=== PATIENT | female | born 1995 | race Caucasian/White ===

== ENCOUNTER → 2018-04-05 16:31 | Outpatient (CLI) | payer OTHER, SELFPAY ==
[2018-04-11 11:48] LABS: HPV Reflexed? NOT INDICATED
== END ==
PROVIDERS: Visit Provider Obstetrics & Gynecology
DX: Z12.4 Encounter for screening for malignant neoplasm of cervix (principal)
CPT/HCPCS: 88175; G0145

== ENCOUNTER → 2019-06-18 17:56 | Outpatient (CLI) | payer BC, SELFPAY ==
[2019-06-18 21:59] LABS: Chlamydia Trachomatis by PCR Negative (Negative); Neisserai gonorrhoeae by PCR Negative (Negative); Probe Check PASS; Sample Adequacy Control PASS; Specimen Processing Control PASS
== END ==
PROVIDERS: Referring Provider Obstetrics & Gynecology; Visit Provider Obstetrics & Gynecology
DX: Z11.3 Encounter for screening for infections with a predominantly sexual mode of transmission (principal)
CPT/HCPCS: 87491; 87591

== ENCOUNTER → 2019-06-28 16:46 | Outpatient (CLI) | payer BC, SELFPAY ==
[2019-06-28 17:33] LABS: Absolute Lymphocyte Count 1.66 X10^3/uL (0.83-4.51); Absolute Neutrophil Count 4.7 X10^3/uL (2.0-7.7); Basophil# 0.03 X10^3/uL; Basophil% 0.4 % (0-1); Eosinophil# 0.05 X10^3/uL; Eosinophils% 0.7 % (0-5); Hematocrit 36.1 % (37-47); Hemoglobin 11.7 g/dL (12.0-15.0); Lymphocyte # 1.66 X10^3/ul (4.0); Lymphocyte % 23.5 % (19-41); Mean Corp Hgb Conc 32.4 g/dL (32-36); Mean Corpuscular Hgb 26.8 pg (27.0-32.0); Mean Corpuscular Volume 82.6 fL (81-99); Mean Platelet Vol. 9.9 fl (6.2-12.0); Monocyte# 0.64 X10^3/uL; Monocyte% 9.1 % (0-10); NRBC Flagged by Analyzer 0 % (0-5); Neutrophil # 4.66 X10^3/uL (2.7-7.7); Platelet Count 170 K/mm3 (150-450); RBC Distribution Width CV 12.3 % (11.6-14.6); RBC Distribution Width SD 37.2 fl (35.1-43.9); Red Blood Count 4.37 M/mm3 (4.2-5.4); White Blood Count 7.1 K/mm3 (4.4-11.0)
[2019-06-28 19:07] LABS: Thyroid Stim Hormone (TSH) 0.73 uIU/mL (0.358-3.74)
[2019-06-29 09:01] LABS: HIV - WCH Non-Reactive (Nonreactive); Hepatitis B Surface Antigen Non-Reactive (Nonreactive); Hepatitis C Antibody Non-Reactive (Nonreactive); Rubella IgG 82.9 IU/mL
[2019-06-29 09:07] LABS: Glucose, Dipstick Normal (Normal); Ketone-Dipstick Negative (Negative); Leukocyte Esterase-Dipstick Negative /ul (Negative); Nitrite-Dipstick Negative (Negative); Occult Blood-Urine Negative /ul (Negative); Protein-Dipstick Negative (Negative); Specific Gravity, Urine 1.015 (1.002-1.030); Urine Bilirubin Dipstick Negative (Negative); Urine Urobilinogen Normal (Normal)
[2019-06-29 09:17] LABS: Amphetamine Urine VISTA NEGATIVE (<1000 ng/mL); Barbiturate Urine VISTA NEGATIVE (< 200 ng/mL); Benzodiazepine Urine VISTA NEGATIVE (< 200 ng/mL); Cocaine Urine VISTA NEGATIVE (< 300 ng/mL); Ecstacy Urine VISTA NEGATIVE (< 500 ng/mL); Methadone Urine VISTA NEGATIVE (< 300 ng/mL); PCP Urine VISTA NEGATIVE (< 25 ng/mL); THC Urine VISTA NEGATIVE (< 50 ng/mL); Vista UDS pH Range 6
[2019-06-29 09:19] LABS: Color, Urine Yellow (Yellow); Urine Clarity Clear (Clear)
[2019-07-05 01:51] LABS: Prenatal RPR NONREACTIVE (NONREACTIVE)
== END ==
PROVIDERS: Visit Provider Obstetrics & Gynecology
DX: Z34.81 Encounter for supervision of other normal pregnancy, first trimester (principal)
CPT/HCPCS: 80307; 81002; 84443; 85025; 86703; 86762; 86803; 87340

== ENCOUNTER → 2019-11-09 | Outpatient (CLI) | payer BC, SELFPAY ==
[2019-11-09 11:18] LABS: Mean Corp Hgb Conc 32.4 g/dL (32-36); Mean Corpuscular Hgb 28.8 pg (27.0-32.0); Mean Platelet Vol. 10.4 fl (6.2-12.0); Platelet Count 142 K/mm3 (150-450); RBC Distribution Width CV 12.9 % (11.6-14.6); RBC Distribution Width SD 41.6 fl (35.1-43.9); Red Blood Count 3.82 M/mm3 (4.2-5.4); White Blood Count 8.3 K/mm3 (4.4-11.0)
[2019-11-09 11:23] LABS: Glucose Challenge Gest 1H 50g 72 mg/dL (70-140)
[2019-11-12 17:07] LABS: BUN 9 mg/dL (7-18); BUN/Creat Ratio 20.5 RATIO (10-20); Creatinine, Serum 0.44 mg/dL (0.55-1.02); EST Glomerular Filtration Rate 184 mL/min (>60); Est Glom Filt Rate - Afr Amer 223 mL/min (>60); Uric Acid 3.7 mg/dL (2.6-6.0)
[2019-11-12 17:08] LABS: AST(SGOT) 10 U/L (15-37); Alanine Aminotransfer ALT/SGPT 27 U/L (13-56); Alkaline Phosphatase 49 U/L (45-117); Chloride 111 mmol/L (98-107); Potassium 4.1 mmol/L (3.5-5.1); Sodium Level 142 mmol/L (136-145)
== END | disposition home or self-care (01) ==
LOC: WOBLAB 10:19
PROVIDERS: Visit Provider Obstetrics & Gynecology
DX: Z34.83 Encounter for supervision of other normal pregnancy, third trimester (principal)
CPT/HCPCS: 36415; 80053; 82950; 84550; 85027

== ENCOUNTER → 2020-01-03 | Outpatient (CLI) | payer BC, SELFPAY | END | disposition home or self-care (01) | LOC: LABSPEC 16:23 | PROVIDERS: Visit Provider Obstetrics & Gynecology | DX: Z36.85 Encounter for antenatal screening for Streptococcus B (principal) | CPT/HCPCS: 87081 ==

== ENCOUNTER → 2020-01-22 17:58 | Outpatient (CLI) | payer BC, SELFPAY | PROVIDERS: PCP Family Medicine; Referring Provider Obstetrics & Gynecology; Visit Provider Obstetrics & Gynecology | DX: Z11.59 Encounter for screening for other viral diseases (principal) | CPT/HCPCS: 87635; 94799; U0003 ==

== ENCOUNTER 2020-01-27 19:05 | Inpatient (IN) | payer BC, SELFPAY ==
[2020-01-27 19:15] VITALS: BMI 31.1
[2020-01-27] MEDS: Lactated Ringers 1,000 ML 50 ML IV (19:40)
--- NOTE | 2020-01-27 20:00 | HP.PCM_ITS ---
- Problem List (1) 40 weeks gestation of Status: Acute (2) Gestational thrombocytopenia Status: Acute Qualifiers: Trimester: third trimester Qualified Code(s): O99.113 - Other diseases of the blood and blood-forming organs and certain disorders involving the immune mechanism complicating , third trimester; D69.6 - Thrombocytopenia, unspecified History Date of Admission: 01/27/20 Final WILBERT: 01/27/20 Final WILBERT Source: US <20 weeks Gestational age: 40 Weeks and 0 Days History of this : This is a 24 year-old, G [2], P [0], at 40.0 weeks gestational age. Alcohol: None Number of Fetus(es): 1 NST - FHR Rate Baby A Baseline: 130 Variability:: Moderate Accelerations:: 15 x 15 Decelerations:: None NST Reactive:: Yes FHR Category:: Category I Uterine Activity:: quiet History Past Pregnancies: Past Pregnancies: PRIOR DELIVERY HISTORY DEL DATE GEST LAB WT LB WT OZ TYPE ANES LABOR [place] Dec 27 5 0 0 0 Ectop None No Expected Delivery Method: Spontaneous Vaginal Number of Visits: 14 Review of Systems Constitutional: Denies: Chills, Fever, Weight Change HEENT: Denies: Head Aches, Sinus Congestion, Sinus Drainage Cardiovascular: Denies: Chest Pain, Palpitations Respiratory: Denies: Cough, Shortness of breath at rest, Sputum production Gastrointestinal: Denies: Abdominal Pain, Nausea, Vomiting Genitourinary: Denies: Dysuria Musculoskeletal: Denies: Joint Pain, Joint Tenderness Skin: Denies: Rash, Wounds Neurological: Denies: Numbness, Tingling, Focal weakness Psychiatric: Denies: Anxiety, Depression, Homicidal Ideations, Suicidal Ideations Hematologic/ Lymphatic: Denies: Easy Bruising, Easy Bleeding Physical Exam General: Alert, Oriented x3, No apparent distress HEENT: Atraumatic, Normocephalic. Negative for: Thyromegaly, Lymphadenopathy Cardiovascular: Regular rate, Regular Rhythm Lungs: Clear to auscultation Abdomen: Bowel Sounds Present, Gravid Neurological: Deep Tendon Reflexes 2+/4 and Symmetrical, Neuro grossly intact [employer]: Normal external genitalia. Negative for: Vulvar lesions Estimated gestational size: Appropriate for gestational size Presentation: Cephalic Cervix Dilation (cm): 1 Station: -3 Effacement (%): 25 Assessment/Plan All Active Problems (This Medical Record has been edited. Action required.) 40 weeks gestation of (Acute) Gestational thrombocytopenia (Acute) A/P: This is a 24 year-old, G [2], P [0], at 40.0 weeks gestational age. Cytotec IOL for gestational thrombocytopenia at term SVE 07/07/-3 NST Category I Regular diet until active labor or Pitocin Expect
[2020-01-27 20:11] LABS: Absolute Lymphocyte Count 1.55 X10^3/uL (0.83-4.51); Absolute Neutrophil Count 7.8 X10^3/uL (2.0-7.7); Basophil# 0.02 X10^3/uL; Basophil% 0.2 % (0-1); Eosinophil# 0.06 X10^3/uL; Eosinophils% 0.6 % (0-5); Hematocrit 36.4 % (37-47); Lymphocyte # 1.55 X10^3/ul (4.0); Mean Corpuscular Hgb 28.4 pg (27.0-32.0); Mean Corpuscular Volume 86.1 fL (81-99); Mean Platelet Vol. 10.9 fl (6.2-12.0); Monocyte# 0.86 X10^3/uL; Monocyte% 8.3 % (0-10); NRBC Flagged by Analyzer 0 % (0-5); Neutrophil # 7.79 X10^3/uL (2.7-7.7); Neutrophil % 75.3 % (47-70); Platelet Count 127 K/mm3 (150-450); RBC Distribution Width CV 13.3 % (11.6-14.6); RBC Distribution Width SD 41.4 fl (35.1-43.9); Red Blood Count 4.23 M/mm3 (4.2-5.4); White Blood Count 10.3 K/mm3 (4.4-11.0)
[2020-01-27] MEDS: miSOPROStol 25 MCG TABLET VAGINAL (20:14)
[2020-01-27 20:18] VITALS: BP 130/78; PULSE 85; TEMP 36.3
[2020-01-28] VITALS (49 sets, daily range): BP systolic 97–153; BP diastolic 55–88; PULSE 72–111; TEMP 35.8–37.2; O2SAT 91–100
[2020-01-28] MEDS: Lactated Ringers 500 ML 999 ML IV ×2 (01:21→11:40)
--- NOTE | 2020-01-28 06:28 | PCM.PN.OB ---
Patient Problems: Active and Suspected Problems (This Medical Record has been edited. Action required.) 40 weeks gestation of (Acute) Gestational thrombocytopenia (Acute) Subjective: A little crampy with contractions, but not too painful. Okay with starting Pitocin. Objective: VSS. SVE 1.5/60/-2. FHR baseline 120, +accels, -decels, moderate variability. - Physical Exam Vitals/I&O's: Vital Signs Temp Pulse BP Pulse Ox 97.2 F L 78 112/70 100 01/28/20 03:54 01/28/20 05:47 01/28/20 03:54 01/28/20 05:47 Weight: 84.731 kg Body Mass Index (BMI) 31.1 Intake and Output for Last 24 Hours 01/26/20 01/27/20 01/28/20 23:59 23:59 23:59 Intake Total 784.17 / 784.17 Balance 784.17 / 784.17 General: Alert, Oriented x3, Cooperative HEENT: Atraumatic, PERRLA, EOMI, Normocephalic Neck: Supple, No JVD, Negative Carotid Bruits Lungs: Clear to auscultation, Normal air movement Cardiovascular: Regular rate, No murmurs Abdomen: Bowel Sounds Present, Soft, Non Tender Extremities: No edema, Capillary Refill Less than 3 Seconds Skin: No rashes, No breakdown Musculoskeletal: No Tenderness to Palpation of Joints or Extremities Neurological: Cranial nerves II-XII grossly intact Psych/Mental Status: Normal Affect, Appropriate Laboratory Results 01/27/20 19:40: WBC 10.3, RBC 4.23, Hgb 12.0, Hct 36.4 L, MCV 86.1, MCH 28.4, MCHC 33.0, RDW Std Deviation 41.4, RDW Coeff of Guido 13.3, Plt Count 127 L, MPV 10.9, Immature Gran % (Auto) 0.600, Neut % (Auto) 75.3 H, Lymph % (Auto) 15.0 L, [place] % (Auto) 8.3, Eos % (Auto) 0.6, Baso % (Auto) 0.2, Absolute Neuts (auto) 7.8 H, Absolute Lymphs (auto) 1.55, Nucleated RBC % 0 01/27/20 19:40: Blood Type A POSITIVE, Antibody Screen NEGATIVE Current Medications Acetaminophen (Tylenol) 325 - 650 mg PO Q4H PRN PRN PRN Reason: Pain Score 1-3/10 Al Hydroxide/Mg Hydroxide (Mylanta Ii) 15 - 30 ml PO Q4H PRN PRN PRN Reason: INDIGESTION Citric Acid/Sodium Citrate (Bicitra) 30 ml PO X1 PRN PRN Reason: Section Fentanyl Citrate (Sublimaze (100mcg Ampule)) 25 - 50 mcg IV Q2H PRN PRN PRN Reason: Pain Score 4-10/10 Lactated Ringer's () 500 mls @ 999 mls/hr IV .Q31M PRN PRN Reason: Epidural Lactated Ringer's () 500 mls @ 999 mls/hr IV .Q31M PRN PRN Reason: Corrective Measures Last Infusion: 01/28/20 01:52 Dose: Infused Documented by: Lactated Ringer's () 1,000 mls @ 50 mls/hr IV .Q20H NELLIE Last Infusion: 01/28/20 01:52 Dose: 50 mls/hr Documented by: Misoprostol (Cytotec) 50 mcg VAGINAL Q6 NELLIE Ondansetron HCl (Zofran) 4 mg IV Q4H PRN PRN PRN Reason: NAUSEA Prochlorperazine Edisylate (Compazine Iv) 10 mg IV Q6H PRN PRN PRN Reason: NAUSEA Sodium Chloride () 10 - 40 ml IV X1 PRN PRN Reason: SALINE FLUSH Medical Necessity - Tobacco Use Smoking Status: Never smoker Assessment/Plan All Active Problems (This Medical Record has been edited. Action required.) 40 weeks gestation of (Acute) Gestational thrombocytopenia (Acute) A/P: here for IOL Had one dose of Cytotec before becoming tachystole, therefore further doses held UC now Q3-4m NST Category I SVE 1.5/60/-2 medium midposition Will start Pitocin and proceed with AROM Unsure of pain management plans with natural vs epidural discussed
[2020-01-28] MEDS: Oxytocin 30 units/NS 500 ml 30 UNITS/500 ML IV.SOLN IV (07:35)
[2020-01-28] MEDS: fentaNYL-bupivacaine (epidural) 100 ML BAG EPIDURAL (12:59)
[2020-01-28] MEDS: Lactated Ringers 1,000 ML 200 ML IV ×3 (13:08→22:50)
--- NOTE | 2020-01-28 14:05 | PN.OBGYN_ITS ---
Patient Problems: Active and Suspected Problems (This Medical Record has been edited. Action required.) 40 weeks gestation of (Acute) Gestational thrombocytopenia (Acute) Subjective: Reports feeling much better with epidural in place. Objective: VSS. FHR 130 baseline, +accels, -decels, moderate variability. SVE 2/50/-3 - Physical Exam Vitals/I&O's: Vital Signs Temp Pulse BP Pulse Ox 98.4 F 88 118/69 100 01/28/20 14:57 01/28/20 17:06 01/28/20 17:06 01/28/20 14:57 Weight: 84.731 kg Body Mass Index (BMI) 31.1 Intake and Output for Last 24 Hours 01/26/20 01/27/20 01/28/20 23:59 23:59 23:59 Intake Total 2816.37 / 2816.37 Balance 2816.37 / 2816.37 General: Alert, Oriented x3, Cooperative HEENT: Atraumatic, PERRLA, EOMI, Normocephalic Neck: Supple, No JVD, Negative Carotid Bruits Lungs: Clear to auscultation, Normal air movement Cardiovascular: Regular rate, No murmurs Abdomen: Bowel Sounds Present, Soft, Non Tender Extremities: No edema, Capillary Refill Less than 3 Seconds Skin: No rashes, No breakdown Musculoskeletal: No Tenderness to Palpation of Joints or Extremities Neurological: Cranial nerves II-XII grossly intact Psych/Mental Status: Normal Affect, Appropriate Laboratory Results 01/27/20 19:40: WBC 10.3, RBC 4.23, Hgb 12.0, Hct 36.4 L, MCV 86.1, MCH 28.4, MCHC 33.0, RDW Std Deviation 41.4, RDW Coeff of Guido 13.3, Plt Count 127 L, MPV 10.9, Immature Gran % (Auto) 0.600, Neut % (Auto) 75.3 H, Lymph % (Auto) 15.0 L, [place] % (Auto) 8.3, Eos % (Auto) 0.6, Baso % (Auto) 0.2, Absolute Neuts (auto) 7.8 H, Absolute Lymphs (auto) 1.55, Nucleated RBC % 0 01/27/20 19:40: Blood Type A POSITIVE, Antibody Screen NEGATIVE Current Medications Acetaminophen (Tylenol) 325 - 650 mg PO Q4H PRN PRN PRN Reason: Pain Score 1-3/10 Al Hydroxide/Mg Hydroxide (Mylanta Ii) 15 - 30 ml PO Q4H PRN PRN PRN Reason: INDIGESTION Citric Acid/Sodium Citrate (Bicitra) 30 ml PO X1 PRN PRN Reason: Section Ephedrine Sulfate () 10 mg IV Q10M PRN PRN Reason: hypotension Ephedrine Sulfate () 10 mg IM Q30M PRN PRN Reason: hypotension Fentanyl Citrate (Sublimaze (100mcg Ampule)) 25 - 50 mcg IV Q2H PRN PRN PRN Reason: Pain Score 4-10/10 Fentanyl/Bupivacaine/Sodium Chlor () 0 ml EPIDURAL UD [facility]; Protocol Last Admin: 01/28/20 12:59 Dose: 100 ml Documented by: Lactated Ringer's () 500 mls @ 999 mls/hr IV .Q31M PRN PRN Reason: Epidural Last Infusion: 01/28/20 12:11 Dose: Infused Documented by: Lactated Ringer's () 500 mls @ 999 mls/hr IV .Q31M PRN PRN Reason: Corrective Measures Last Infusion: 01/28/20 01:52 Dose: Infused Documented by: Lactated Ringer's () 1,000 mls @ 50 mls/hr IV .Q20H [facility] Last Admin: 01/28/20 13:08 Dose: 200 mls/hr Documented by: Oxytocin/Sodium Chloride () 30 units in 500 mls @ 2 mls/hr IV .Q250H [facility] Last Infusion: 01/28/20 14:00 Dose: 6 mls/hr Documented by: Naloxone HCl 4 mg/ Dextrose 504 mls @ 0 mls/hr IV .Q0M PRN; Protocol PRN Reason: To maintain Resp. rate >10 Naloxone HCl (Narcan) 0.02 mg IV Q1M PRN PRN Reason: RR <10 and pt unresponsive Ondansetron HCl (Zofran) 4 mg IV Q4H PRN PRN PRN Reason: NAUSEA Last Admin: 01/28/20 17:01 Dose: 4 mg Documented by: Prochlorperazine Edisylate (Compazine Iv) 10 mg IV Q6H PRN PRN PRN Reason: NAUSEA Sodium Chloride () 10 - 40 ml IV X1 PRN PRN Reason: SALINE FLUSH Medical Necessity - Tobacco Use Smoking Status: Never smoker Assessment/Plan All Active Problems (This Medical Record has been edited. Action required.) 40 weeks gestation of (Acute) Gestational thrombocytopenia (Acute) A/P: SVE 50/-3 UC Q3m AROM clear fluid Epidural in place for pain management, effective
[2020-01-28] MEDS: Ondansetron 4 MG/2 ML Vial IV (17:01)
--- NOTE | 2020-01-28 18:02 | PCM.PN.OB ---
Patient Problems: Active and Suspected Problems (This Medical Record has been edited. Action required.) 40 weeks gestation of (Acute) Gestational thrombocytopenia (Acute) Subjective: Doesn't feel anything waist down at all with epidural in place. Was vomiting, but reports feeling better right now. Objective: VSS. FHR 135, +accels, -decels, moderate variability. SVE 3/50/-2 medium anterior. AROM clear fluid. - Physical Exam Vitals/I&O's: Vital Signs Temp Pulse BP Pulse Ox 98.4 F 88 118/69 100 01/28/20 14:57 01/28/20 17:06 01/28/20 17:06 01/28/20 14:57 Weight: 84.731 kg Body Mass Index (BMI) 31.1 Intake and Output for Last 24 Hours 01/26/20 01/27/20 01/28/20 23:59 23:59 23:59 Intake Total 2816.37 / 2816.37 Balance 2816.37 / 2816.37 General: Alert, Oriented x3, Cooperative HEENT: Atraumatic, PERRLA, EOMI, Normocephalic Neck: Supple, No JVD, Negative Carotid Bruits Lungs: Clear to auscultation, Normal air movement Cardiovascular: Regular rate, No murmurs Abdomen: Bowel Sounds Present, Soft, Non Tender Extremities: No edema, Capillary Refill Less than 3 Seconds Skin: No rashes, No breakdown Musculoskeletal: No Tenderness to Palpation of Joints or Extremities Neurological: Cranial nerves II-XII grossly intact Psych/Mental Status: Normal Affect, Appropriate Laboratory Results 01/27/20 19:40: WBC 10.3, RBC 4.23, Hgb 12.0, Hct 36.4 L, MCV 86.1, MCH 28.4, MCHC 33.0, RDW Std Deviation 41.4, RDW Coeff of Guido 13.3, Plt Count 127 L, MPV 10.9, Immature Gran % (Auto) 0.600, Neut % (Auto) 75.3 H, Lymph % (Auto) 15.0 L, [place] % (Auto) 8.3, Eos % (Auto) 0.6, Baso % (Auto) 0.2, Absolute Neuts (auto) 7.8 H, Absolute Lymphs (auto) 1.55, Nucleated RBC % 0 01/27/20 19:40: Blood Type A POSITIVE, Antibody Screen NEGATIVE Current Medications Acetaminophen (Tylenol) 325 - 650 mg PO Q4H PRN PRN PRN Reason: Pain Score 1-3/10 Al Hydroxide/Mg Hydroxide (Mylanta Ii) 15 - 30 ml PO Q4H PRN PRN PRN Reason: INDIGESTION Citric Acid/Sodium Citrate (Bicitra) 30 ml PO X1 PRN PRN Reason: Section Ephedrine Sulfate () 10 mg IV Q10M PRN PRN Reason: hypotension Ephedrine Sulfate () 10 mg IM Q30M PRN PRN Reason: hypotension Fentanyl Citrate (Sublimaze (100mcg Ampule)) 25 - 50 mcg IV Q2H PRN PRN PRN Reason: Pain Score 4-10/10 Fentanyl/Bupivacaine/Sodium Chlor () 0 ml EPIDURAL UD [facility]; Protocol Last Admin: 01/28/20 12:59 Dose: 100 ml Documented by: Lactated Ringer's () 500 mls @ 999 mls/hr IV .Q31M PRN PRN Reason: Epidural Last Infusion: 01/28/20 12:11 Dose: Infused Documented by: Lactated Ringer's () 500 mls @ 999 mls/hr IV .Q31M PRN PRN Reason: Corrective Measures Last Infusion: 01/28/20 01:52 Dose: Infused Documented by: Lactated Ringer's () 1,000 mls @ 50 mls/hr IV .Q20H [facility] Last Admin: 01/28/20 13:08 Dose: 200 mls/hr Documented by: Oxytocin/Sodium Chloride () 30 units in 500 mls @ 2 mls/hr IV .Q250H [facility] Last Infusion: 01/28/20 14:00 Dose: 6 mls/hr Documented by: Naloxone HCl 4 mg/ Dextrose 504 mls @ 0 mls/hr IV .Q0M PRN; Protocol PRN Reason: To maintain Resp. rate >10 Naloxone HCl (Narcan) 0.02 mg IV Q1M PRN PRN Reason: RR <10 and pt unresponsive Ondansetron HCl (Zofran) 4 mg IV Q4H PRN PRN PRN Reason: NAUSEA Last Admin: 01/28/20 17:01 Dose: 4 mg Documented by: Prochlorperazine Edisylate (Compazine Iv) 10 mg IV Q6H PRN PRN PRN Reason: NAUSEA Sodium Chloride () 10 - 40 ml IV X1 PRN PRN Reason: SALINE FLUSH Medical Necessity - Tobacco Use Smoking Status: Never smoker Assessment/Plan All Active Problems (This Medical Record has been edited. Action required.) 40 weeks gestation of (Acute) Gestational thrombocytopenia (Acute) A/P: SVE 3/50/-2 AROM, clear fluid NST Category I Epidural in place with proper pain management Expect
[2020-01-29] VITALS (26 sets, daily range): BP systolic 98–131; BP diastolic 57–77; PULSE 80–98; RESP 16–18; TEMP 36.1–37.4; O2SAT 87–100
[2020-01-29] MEDS: Lactated Ringers 1,000 ML 200 ML IV (04:24)
[2020-01-29] MEDS: Oxytocin 30 units/NS 500 ml 30 UNITS/500 ML IV.SOLN 334 UNITS IV (06:37)
--- NOTE | 2020-01-29 07:00 | DCINST_ITS ---
<Chandrika Mancilla - Last Filed: 01/29/20 07:00> Additional Instructions: If you experience any of the following, contact your healthcare provider. * Bleeding that soaks a pad every hour for 2 hours * Fever 100.4 or higher * Unrelieved incision or abdominal pain * Swelling, redness, discharge or bleeding from your incision or ep isiotomy site * Your incision begins to separate * Problems urinating (including inability to urinate or burning while urinating). * Visual changes * Severe headache * Flu-like symptoms * Pain or redness in one of both of your breasts * Pain, warmth, tenderness or swelling in your legs, especially the calf area * Frequent nausea and vomiting * Symptoms of depression or anxiety If you experience any of the following, call 911 or go to the nearest Emergency Room. * Chest pain * Problems breathing * Seizure activity * Partial or complete paralysis of a body part, slurred speech, weakness or drooping of the face, or a sudden inability to walk or hold your balance Allergies/Adverse Reactions: Allergies No Known Allergies Allergy (Verified 01/27/20 20:03) Medications to take at Discharge Pnv No.103/Folic/Om3s/Fish Oil [ Gummies] 2 ea PO DAILY 01/27/20 Oxycodone [Oxyir] 5 mg PO Q6H PRN PRN 7 Days #12 tab 01/30/20 The following prescriptions were given: Oxycodone [Oxyir] 5 mg PO Q6H PRN PRN 7 Days #12 tab PRN Reason: Pain Score 6-10/10 Transmission Status: Sent to [id number] Primary Care Physician: Marvel Rider MD [Primary Care Provider] - Test Results: Test results from this visit will be discussed in further detail at your follow- up appointment, if applicable. <Jesus Fung - Last Filed: 01/30/20 08:05> Additional Instructions: If you experience any of the following, contact your healthcare provider. * Bleeding that soaks a pad every hour for 2 hours * Fever 100.4 or higher * Unrelieved incision or abdominal pain * Swelling, redness, discharge or bleeding from your incision or episiotomy site * Your incision begins to separate * Problems urinating (including inability to urinate or burning while urinating). * Visual changes * Severe headache * Flu-like symptoms * Pain or redness in one of both of your breasts * Pain, warmth, tenderness or swelling in your legs, especially the calf area * Frequent nausea and vomiting * Symptoms of depression or anxiety If you experience any of the following, call 911 or go to the nearest Emergency Room. * Chest pain * Problems breathing * Seizure activity * Partial or complete paralysis of a body part, slurred speech, weakness or drooping of the face, or a sudden inability to walk or hold your balance Test Results: Test results from this visit will be discussed in further detail at your follow- up appointment, if applicable.
--- NOTE | 2020-01-29 07:00 | PCM.OPRPT ---
<Chandrika Mancilla - Last Filed: 01/29/20 08:42> Problem List (1) 40 weeks gestation of Status: Acute (2) Gestational thrombocytopenia Status: Acute Qualifiers: Trimester: third trimester Qualified Code(s): O99.113 - Other diseases of the blood and blood-forming organs and certain disorders involving the immune mechanism complicating , third trimester; D69.6 - Thrombocytopenia, unspecified Vaginal Delivery Maternal Presentation: Medically Indicated Induction Method of Induction: Cytotec Medical Reason for Induction: Maternal Medical Condition: list: - thrombocytopenia Amniotic Membrane Rupture Type: Artificial Amniotic Fluid Description: Clear Final WILBERT: 01/27/20 Final WILBERT Source: US <20 weeks Gestational age: 40 Weeks and 2 Days Date of Procedure: 01/29/20 Pre-Operative Diagnosis: IOL Post-Operative Diagnosis: S/P Surgery/ Procedure Performed: Spontaneous Vaginal Delivery Anesthesiologist: Asa Mata Type of Anesthesia: Epidural Description of Procedure: Patient was FD at +3 station when pushing initiated. She pushed well to deliver head in OA to PAU followed spontaneously by body. The male was placed on the maternal abdomen and further attended to by nursery personnel. The cord was doubly clamped and cut by MD under CNM supervision at approximately 5 minutes of life. Second degree vaginal floor laceration repaired with a 2.0 vicryl under epidural anesthesia. With gentle traction the placenta delivered. IV Pitocin started per protocol. On inspection placenta appears to have a three vessel cord. Apgars 9/10. EBL 200. Sponge and needle counts correct x 2. Attending MD: Dr. Shawn Fung Presentation: Vertex, PAU Placental Delivery Description: Spontaneous Placenta Disposition: [facility] Cord Vessel Description: 3 Vessels Cord Entanglement: None Drain: Jade to straight drain Estimated Blood Loss: 200 A gender: Male (1 minute): 9 (5 minute): 10 Episiotomy Description: None Laceration: 2nd degree Medications given after delivery: IV Pitocin <Yue Fung - Last Filed: 01/29/20 14:24> Vaginal Delivery Description of Procedure: Physician no present for cord clamping.
--- NOTE | 2020-01-29 07:00 | PCM.DCVAG ---
<Chandrika Mancilla - Last Filed: 01/29/20 07:00> Additional Instructions: If you experience any of the following, contact your healthcare provider. Bleeding that soaks a pad every hour for 2 hours Fever 100.4 or higher Unrelieved incision or abdominal pain Swelling, redness, discharge or bleeding from your incision or episiotomy site Your incision begins to separate Problems urinating (including inability to urinate or burning while urinating). Visual changes Severe headache Flu-like symptoms Pain or redness in one of both of your breasts Pain, warmth, tenderness or swelling in your legs, especially the calf area Frequent nausea and vomiting Symptoms of depression or anxiety If you experience any of the following, call 911 or go to the nearest Emergency Room. Chest pain Problems breathing Seizure activity Partial or complete paralysis of a body part, slurred speech, weakness or drooping of the face, or a sudden inability to walk or hold your balance Allergies/Adverse Reactions: Allergies No Known Allergies Allergy (Verified 01/27/20 20:03) Medications to take at Discharge Pnv No.103/Folic/Om3s/Fish Oil [ Gummies] 2 ea PO DAILY 01/27/20 Oxycodone [Oxyir] 5 mg PO Q6H PRN PRN 7 Days #12 tab 01/30/20 The following prescriptions were given: Oxycodone [Oxyir] 5 mg PO Q6H PRN PRN 7 Days #12 tab PRN Reason: Pain Score 6-10/10 Transmission Status: Sent to [id number] Primary Care Physician: Marvel Rider MD [Primary Care Provider] - Test Results: Test results from this visit will be discussed in further detail at your follow-up appointment, if applicable. <Jesus Fung - Last Filed: 01/30/20 08:05> Additional Instructions: If you experience any of the following, contact your healthcare provider. Bleeding that soaks a pad every hour for 2 hours Fever 100.4 or higher Unrelieved incision or abdominal pain Swelling, redness, discharge or bleeding from your incision or episiotomy site Your incision begins to separate Problems urinating (including inability to urinate or burning while urinating). Visual changes Severe headache Flu-like symptoms Pain or redness in one of both of your breasts Pain, warmth, tenderness or swelling in your legs, especially the calf area Frequent nausea and vomiting Symptoms of depression or anxiety If you experience any of the following, call 911 or go to the nearest Emergency Room. Chest pain Problems breathing Seizure activity Partial or complete paralysis of a body part, slurred speech, weakness or drooping of the face, or a sudden inability to walk or hold your balance Test Results: Test results from this visit will be discussed in further detail at your follow-up appointment, if applicable.
[2020-01-29] MEDS: 0.9% Saline Lock 10 ML Syringe IV (09:32)
[2020-01-29] MEDS: Acetaminophen 500 MG Tablet 1000 MG PO (13:33)
[2020-01-29] MEDS: Ibuprofen 600 MG Tablet PO ×2 (15:15→21:29)
[2020-01-29] MEDS: Senna/Docusate Sodium 1 Tablet PO (21:29)
[2020-01-30 00:55] VITALS: BP 120/74; PULSE 75; RESP 14; TEMP 36.4
[2020-01-30 03:01] VITALS: BP 107/63; PULSE 75; RESP 16; TEMP 36.5
[2020-01-30] MEDS: Ibuprofen 600 MG Tablet PO (07:00)
[2020-01-30 08:00] VITALS: BP 122/74; PULSE 86; RESP 16; TEMP 36.1
--- NOTE | 2020-01-30 08:06 | PCM.PN.OB ---
Patient Problems: Active and Suspected Problems (This Medical Record has been edited. Action required.) 40 weeks gestation of (Acute) Gestational thrombocytopenia (Acute) Subjective: Objective: No overnight complaints, pain well controlled. Denies CP, SOB, N/V - Physical Exam Vitals/I&O's: Vital Signs Temp Pulse Resp BP Pulse Ox 97.7 F L 75 16 107/63 87 01/30/20 03:01 01/30/20 03:01 01/30/20 03:01 01/30/20 03:01 01/29/20 05:25 Oxygen Delivery Method Room Air Weight: 186 lb 12.8 oz Body Mass Index (BMI) 31.1 Intake and Output for Last 24 Hours 01/28/20 01/29/20 01/30/20 23:59 23:59 23:59 Intake Total 4802.20 / 4802.20 2856.96 / 2856.96 Output Total 3050 / 3050 Balance 4802.20 / 4802.20 -193.04 / -193.04 General: Alert, Oriented x3 HEENT: Atraumatic, PERRLA, Normocephalic Oral: Moist Mucosa Neck: Supple Abdomen: Bowel Sounds Present, Soft, Non Tender, Non-Distended, Gravid Extremities: No edema Skin: No rashes Psych/Mental Status: Normal Affect, Appropriate, Alert and oriented to time, place, person, mood and affect Current Medications Acetaminophen (Tylenol) 1,000 mg PO Q8H PRN PRN PRN Reason: Pain Score 1-3/10 Last Admin: 01/29/20 13:33 Dose: 1,000 mg Documented by: Bisacodyl (Dulcolax) 10 mg RECTAL UD PRN PRN Reason: If no BM Hydrocortisone (Hytone) 1 applic TOPICAL TID PRN PRN; Protocol PRN Reason: Discomfort Ibuprofen (Motrin) 600 mg PO Q6H PRN PRN PRN Reason: Pain Score 1-3/10 Last Admin: 01/30/20 07:00 Dose: 600 mg Documented by: Methylergonovine Maleate (Methergine) 0.2 mg IM X1 PRN PRN Reason: Excess bleeding/uterine atony Ondansetron HCl (Zofran) 4 mg IV Q4H PRN PRN PRN Reason: Nausea Senna/Docusate Sodium (Senokot-S, [place]-Colace) 1 - 2 tablet PO DAILY PRN PRN PRN Reason: Constipation Last Admin: 01/29/20 21:29 Dose: 2 tablet Documented by: Simethicone (Mylicon) 80 mg PO [facility]S PRN PRN Reason: Indigestion/Stomach pain Sodium Chloride () 5 - 15 ml IV UD PRN PRN Reason: SALINE FLUSH Last Admin: 01/29/20 09:32 Dose: 10 ml Documented by: Throat Lozenges (Dermoplast (Sp)) 1 applic TOPICAL 4X/DAY PRN NELLIE; Protocol Medical Necessity - Tobacco Use Smoking Status: Never smoker Assessment/Plan All Active Problems (This Medical Record has been edited. Action required.) 40 weeks gestation of (Acute) Gestational thrombocytopenia (Acute) PPD#1 s/p . Pain well controlled. okay to d/c home
[2020-01-30 08:11] VITALS: BP 122/74; PULSE 86
--- NOTE | 2020-02-04 11:57 | NURSING ---
follow up phone call done, mother states she is doing really good, denies questions or concerns and was satisfied with her care
== END 2020-01-30 11:05 | disposition home or self-care (01) | DRG 807 ==
PROVIDERS: Admitting Provider Obstetrics & Gynecology; PCP Family Medicine; Visit Provider Obstetrics & Gynecology
DX: O99.12 Other diseases of the blood and blood-forming organs and certain disorders involving the immune mechanism complicating childbirth (principal); Z37.0 Single live birth; D69.6 Thrombocytopenia, unspecified; O71.4 Obstetric high vaginal laceration alone; Z3A.40 40 weeks gestation of pregnancy
CPT/HCPCS: 59025; 59050; 85025; 86850; 86900; 86901; 99218; J7120; A4216; G0378; J2405

== ENCOUNTER 2021-08-24 16:37 | Outpatient (CLI) | payer OTHER, SELFPAY ==
[2021-08-24 17:08] LABS: Absolute Lymphocyte Count 1.55 X10^3/uL (0.83-4.51); Absolute Neutrophil Count 3.9 X10^3/uL (2.0-7.7); Basophil# 0.02 X10^3/uL; Basophil% 0.3 % (0-1); Eosinophil# 0.06 X10^3/uL; Hematocrit 36.5 % (37-47); Hemoglobin 12.3 g/dL (12.0-15.0); Lymphocyte # 1.55 X10^3/ul (0.83-4.51); Mean Corp Hgb Conc 33.7 g/dL (32-36); Mean Corpuscular Hgb 28.3 pg (27.0-32.0); Mean Corpuscular Volume 83.9 fL (81-99); Mean Platelet Vol. 9.7 fl (6.2-12.0); Monocyte# 0.44 X10^3/uL; Monocyte% 7.4 % (0-10); NRBC Flagged by Analyzer 0 % (0-5); Neutrophil # 3.87 X10^3/uL (2.7-7.7); Neutrophil % 64.8 % (47-70); Platelet Count 160 K/mm3 (150-450); RBC Distribution Width CV 12.3 % (11.6-14.6); Red Blood Count 4.35 M/mm3 (4.2-5.4)
[2021-08-25 09:06] LABS: HIV - WCH Non-Reactive (Nonreactive); Hepatitis B Surface Antigen Non-Reactive (Nonreactive); Hepatitis C Antibody Non-Reactive (Nonreactive); Rubella IgG Reactive (Nonreactive); Syphilis Antibodies Non-reactive
== END 2021-08-24 23:59 | disposition home or self-care (01) ==
PROVIDERS: PCP Family Medicine; Visit Provider Student in an Organized Health Care Education/Training Program
DX: Z34.81 Encounter for supervision of other normal pregnancy, first trimester (principal)
CPT/HCPCS: 36415; 85025; 86703; 86762; 86780; 86803; 87086; 87340

== ENCOUNTER → 2022-01-27 | Outpatient (CLI) | payer OTHER, SELFPAY ==
--- NOTE | 2022-01-27 15:42 | VDLE_ITS ---
Reason For Study: Swelling RIGHT LEFT GSV is normal. CFV is compressible, spontaneous, phasic, CFV is compressible, spontaneous, phasic, competent, and demonstrates normal competent and demonstrates normal augmentation. augmentation. FV is compressible, spontaneous, phasic, competent and demonstrates normal augmentation. POP V is compressible, spontaneous, phasic, competent and demonstrates normal augmentation. T/P Trunk is compressible. PTV is compressible. RT PerV is compressible. Procedure This is a venous duplex using B-mode, color flow and spectral Doppler. Exam performed in department. A preliminary report was called and/or faxed to Dr. Fung. VL/Venous Duplex US, Unilateral Interpretation Summary There is no evidence of right lower extremity deep vein thrombosis. Right great saphenous vein appears patent and compressible segmentally. Normal flow patterns left common f emoral vein Ordering Physician: Yue Fung Referring Physician: Don Rider Performed By: Diann Kilgore, JESSICA, RVT
== END | disposition home or self-care (01) ==
LOC: CVS 15:40
PROVIDERS: PCP Family Medicine; Referring Provider Student in an Organized Health Care Education/Training Program; Visit Provider Student in an Organized Health Care Education/Training Program
DX: M79.89 Other specified soft tissue disorders (principal)
CPT/HCPCS: 93971

== ENCOUNTER → 2022-02-10 | Outpatient (CLI) | payer OTHER, SELFPAY | END | disposition home or self-care (01) | LOC: LABSPEC 16:11 | PROVIDERS: PCP Family Medicine; Visit Provider Student in an Organized Health Care Education/Training Program | DX: Z36.85 Encounter for antenatal screening for Streptococcus B (principal) | CPT/HCPCS: 87081 ==

== ENCOUNTER 2022-03-05 05:25 | Inpatient (IN) | payer OTHER, SELFPAY ==
[2022-03-05] VITALS (45 sets, daily range): BP systolic 101–145; BP diastolic 53–96; PULSE 64–103; RESP 16; TEMP 36.3–37.4; O2SAT 83–100; BMI 31.1
[2022-03-05] MEDS: LACTATED RINGERS 500 ML 999 ML IV (05:45)
[2022-03-05 06:10] LABS: Absolute Lymphocyte Count 1.32 X10^3/uL (0.83-4.51); Absolute Neutrophil Count 10.7 X10^3/uL (2.0-7.7); Basophil# 0.03 X10^3/uL; Basophil% 0.2 % (0-1); Eosinophil# 0.05 X10^3/uL; Eosinophils% 0.4 % (0-5); Lymphocyte # 1.32 X10^3/ul (0.83-4.51); Lymphocyte % 9.9 % (19-41); Mean Corp Hgb Conc 31.6 g/dL (32-36); Mean Corpuscular Volume 88.8 fL (81-99); Mean Platelet Vol. 10.7 fl (6.2-12.0); Monocyte# 1.12 X10^3/uL; Monocyte% 8.4 % (0-10); NRBC Flagged by Analyzer 0 % (0-5); Neutrophil # 10.73 X10^3/uL (2.7-7.7); Neutrophil % 80.2 % (47-70); Platelet Count 120 K/mm3 (150-450); RBC Distribution Width CV 13.9 % (11.6-14.6); RBC Distribution Width SD 45.1 fl (35.1-43.9); Red Blood Count 4.28 M/mm3 (4.2-5.4); White Blood Count 13.4 K/mm3 (4.4-11.0)
[2022-03-05] MEDS: Lactated Ringers 1,000 ML 200 ML IV (06:30)
[2022-03-05] MEDS: fentaNYL-bupivacaine (epidural) 100 ML BAG EPIDURAL (06:45)
[2022-03-05] MEDS: Oxytocin 30 units/NS 500 ml 30 UNITS/500 ML IV.SOLN 334 UNITS IV (08:08)
--- NOTE | 2022-03-05 08:20 | HP.PCM.OB_ITS ---
History and Physical Date of Admission: 03/05/22 HPI: 26-year-old G3, P1 at 40/6 weeks, WILBERT 02/27/2022 by first trimester ultrasound, admitted in labor. Reports contractions. Denies leaking of fluid, vaginal bleeding. Reports movement. Denies headache, vision changes, chest pain or shortness of breath, nausea or vomiting, diarrhea or constipation, fevers or chills. : Uncomplicated RN ONCOLOGY RESEARCH history: G1: Ectopic G2: 40-week G3: Current Medical history: Denies Surgical history: Denies Family history: Denies history of blood clots or bleeding disorders Allergies: No known drug allergies Medications: vitamin Social history: Denies tobacco, alcohol, drug use Review of system: Negative otherwise stated above Physical exam: BP 108/53, pulse 90, temp 99.1 ?F General: No acute distress HEENT: Normocephalic/atraumatic, PERRLA Cardiorespiratory: No increased effort Abdomen: Soft, nontender, gravid Extremities: No edema Musculoskeletal: Strength 5 out of 5 throughout all extremities Neurologic: Cranial nerves II through XII grossly intact, no focal deficits Cervical exam: 4 cm per RN on admission heart rate:135/mod [place]/+accel/+intermittent variable decel [place]: q2-3 Assessment/plan:26-year-old G3, P1 at 40/6 weeks, WILBERT 02/27/2022 by first trimester ultrasound, admitted in labor. : Uncomplicated ?Admit to labor and delivery ?GBS negative ?Epidural when desired
--- NOTE | 2022-03-05 08:25 | EX.PCM.OBRPT ---
Vaginal Delivery Operative Information Date of Procedure: 03/05/22 Pre-Operative Diagnosis: Paul Intrauterine Post-Operative Diagnosis: Palu Intrauterine Surgery / Procedure Performed: Spontaneous Vaginal Delivery Type of Anesthesia: Epidural Estimated Blood Loss: 250cc Findings Description of Procedure: Spontaneous vaginal delivery of viable male. Nuchal cord x1, loose, reduced. Baby to mom. Cord clamped and cut. Spontaneous delivery of placenta. No lacerations. A Gender: Male (1 minute): 9 (5 minute): 9
[2022-03-05] MEDS: Ibuprofen 600 MG Tablet PO ×2 (12:00→20:39)
[2022-03-05] MEDS: 0.9% Saline Lock 10 ML Syringe IV (12:01)
--- NOTE | 2022-03-05 15:56 | NURSING ---
student charting reviewed
[2022-03-06 00:52] VITALS: BP 115/78; PULSE 78; RESP 16; TEMP 36.6
[2022-03-06 04:16] VITALS: BP 113/67; PULSE 71; RESP 16; TEMP 36.9
[2022-03-06 08:38] VITALS: BP 123/83; PULSE 77; RESP 16; TEMP 36.1; O2SAT 99
--- NOTE | 2022-03-06 09:33 | PCM.PN.OB ---
Subjective Subjective Feeling well. Lochia minimal. Breast-feeding. Objective Data Objective Data Vital Signs: Vital Signs Temp Pulse Resp BP Pulse Ox O2 Del Method 97.0 F L 77 16 123/83 H 99 Room Air 03/06/22 08:38 03/06/22 08:38 03/06/22 08:38 03/06/22 08:38 03/06/22 08:38 03/06/22 08:38 Oxygen Delivery Method Room Air Weight: 82.463 kg Body Mass Index (BMI) 31.1 Intake & Output: Intake and Output for Last 24 Hours 03/04/22 03/05/22 03/06/22 23:59 23:59 23:59 Intake Total 1316.67 / 1316.67 Output Total 700 / 700 Balance 616.67 / 616.67 Lab / Micro Data Result Diagrams: 03/05/22 05:45 Micro: Microbiology 03/05/22 05:45 Nasal Secretion SARS-CoV-2 Antigen (Rapid) - Final Physical Exam Const alert, oriented x3 and no apparent distress HEENT normocephalic Head and Scalp: atraumatic Neck full ROM Resp normal respiratory effort Cardio regular rate GI normal to inspection, nondistended, normoactive bowel sounds GI Narrative: Uterus 2 cm below umbilicus Back/Spine normal ROM Extremity normal to inspection Extremity Narrative: Minimal pedal edema Neuro no focal motor deficits and no sensory deficits noted Psych mental status grossly normal and affect normal Assessment & Plan (1) Vaginal delivery: PLAN: day 1 status post . Feeling well. Breast-feeding. Home today. Follow-up 4 to 6 weeks.
--- NOTE | 2022-03-06 09:34 | DCINST_ITS ---
Discharge Instructions Diet Discharge Diet: No restrictions Activity Discharge Activity: Return to Normal Activity and May Shower May resume sexual activity in: 4-6 weeks Weight Bearing Status: Weight bearing as tolerated Lifting Restrictions: No greater than 25 pounds Dressing / Incision Call your doctor if you observe: Fever of 101 or Higher, Change in Color, Inability to urinate, Using more than 1 pad per hour, Shortness of breath, Dizziness, Swelling in the ankles, Chest pain and Calf discomfort Follow Up Care Please Follow Up With: Yue Fung DO When: 4-6 week visit Test Results: Test results from this visit will be discussed in further detail at your follow- up appointment, if applicable. Discharge Plan Admission Admit Date/Time: 03/05/22 05:25 Primary Reason for Your Visit: Vaginal delivery Attending Provider: Yue Fung Primary Care Provider: Marvel Rider Discharge Orders/Prescriptions Prescriptions: No Action PNV [id number] 1 EACH tablet,chewable 2 ea PO DAILY Referrals / Follow Up: Marvel Rider MD [Primary Care Provider] - Disposition Disposition (needs filled in before D/C Order can be placed): Home, Self Care
[2022-03-06 13:16] VITALS: BP 127/81; PULSE 79; RESP 16; TEMP 36.2; O2SAT 98
== END 2022-03-06 13:55 | disposition home or self-care (01) | DRG 806 ==
LOC: WPOUT 05:29 → WP 05:29
PROVIDERS: Obstetrics & Gynecology; Admitting Provider Student in an Organized Health Care Education/Training Program; PCP Family Medicine; Referring Provider Student in an Organized Health Care Education/Training Program; Visit Provider Student in an Organized Health Care Education/Training Program
DX: O76 Abnormality in fetal heart rate and rhythm complicating labor and delivery (principal); Z37.0 Single live birth; O99.12 Other diseases of the blood and blood-forming organs and certain disorders involving the immune mechanism complicating childbirth; D69.6 Thrombocytopenia, unspecified; O69.81X0 Labor and delivery complicated by cord around neck, without compression, not applicable or unspecified; Z3A.40 40 weeks gestation of pregnancy
CPT/HCPCS: 59025; 59050; 85025; 86850; 86900; 86901; 87426; 99218; J7120; A4216; G0378